=== PATIENT | female | born 1995 | race African-American/Black ===

== ENCOUNTER 2021-10-25 11:49 | Day surgery (SDC) | payer BC ==
[2021-10-25 12:25] VITALS: BMI 26.2
[2021-10-25 13:39] LABS: Bilirubin Neg (Negative); Blood, Urine 25 (Negative); Clarity Slightly Cloudy (Clear); Glucose, Urine (Dipstick) Normal (Negative); Ketone, Urine 5 mg/dL (Negative); Leukocyte 500 (Negative); Nitrite Negative (Negative); Protein, Urine (Dipstick) 15 mg/dl (Neg-Trace)
[2021-10-25] MEDS ORDERED: hydrALAZINE 20 MG/ML VIAL SLOW IVP PRN (13:48)
[2021-10-25 14:05] LABS: Bacteria/HPF 2+ HPF (None Seen)
== END 2021-10-25 14:28 | disposition home or self-care (01) ==
LOC: CSHLD/OP 11:49
PROVIDERS: ATTEND Obstetrics & Gynecology
DX: O99.891 Other specified diseases and conditions complicating pregnancy (principal); R10.9 Unspecified abdominal pain; Z3A.28 28 weeks gestation of pregnancy
CPT/HCPCS: 81003; 81015

== ENCOUNTER 2022-01-06 10:41 | Outpatient (CLI) | payer BC ==
[2022-01-07 00:05] LABS: SARS-CoV-2 PCR by NAA Not Detected (NotDetected)
== END 2022-01-06 10:42 | disposition home or self-care (01) ==
LOC: CSHLAB 10:41
PROVIDERS: ATTEND Advanced Practice Midwife
DX: Z20.822 Contact with and (suspected) exposure to COVID-19 (principal)
CPT/HCPCS: U0003; U0005

== ENCOUNTER 2024-11-10 13:41 | Emergency (ER) | payer SELFPAY ==
[2024-11-10 14:42] LABS: Hematocrit 33.8 % (34.9-44.5); Hemoglobin 10.3 g/dL (12.0-15.5); Mean Corpuscular HGB CONC 30.5 g/dL (32.0-36.0); Mean Corpuscular Volume 88.7 fL (81.6-98.3); Mean Platelet Volume 11.5 fL (7.4-10.4); Platelet Count 284 10x3/uL (150-450); RBC Distribution Width 14.2 % (11.5-14.5); Red Blood Cell (RBC) Count 3.81 10x6/uL (3.90-5.03)
[2024-11-10 14:45] LABS: BHCG - Serum Negative (NEGATIVE); Pregs Control Background? CLEAR/WHITE (CLR/WHITE); Pregs Control Bar Appear? YES (CONTROL BAR)
[2024-11-10 14:52] LABS: ALT (SGPT) 12 U/L (8-55); AST (SGOT) 13 U/L (5-34); Albumin 4.1 g/dL (3.5-5.0); Alkaline Phosphatase 62 U/L (40-110); Anion Gap 12 mmol/L (10-20); BUN (Urea Nitrogen) 9 mg/dL (7.0-18.7); Bilirubin, Total 0.7 mg/dL (0.2-1.2); Calc. Creatinine Clearance 0 mL/min (70-130); Calcium 9.7 mg/dL (7.8-10.44); Carbon Dioxide 23 mmol/L (22-29); Chloride 108 mmol/L (98-107); Estimated GFR 113; Globulin 3.2 g/dL (2.4-3.5); Glucose 85 mg/dL (70-105); Protein, Total 7.3 g/dL (6.0-8.3); Sodium 139 mmol/L (136-145)
[2024-11-10 15:16] LABS: Bilirubin Neg (Negative); Blood, Urine 150 (Negative); Clarity Clear (Clear); Glucose, Urine (Dipstick) Normal (Negative); Ketone, Urine Negative (Negative); Leukocyte Negative (Negative); Nitrite Negative (Negative); Protein, Urine (Dipstick) Negative (Neg-Trace); Specific Gravity, Urine 1.015 (1.005-1.030); Urobilinogen Normal mg/dL (Less than 2)
[2024-11-10 15:16] LABS: MDiff Complete? YES
[2024-11-10 15:42] LABS: Lymphocytes 41 % (21-51); Monocytes 9 % (0-10); Neutrophil 49 % (42-75); Reactive Lymphocytes 1 % (0-10)
[2024-11-10 15:43] LABS: Elliptocytes SLIGHT = 2-5 cells (100X) (0-1/hpf); Hypochromia SLIGHT = 6-15 cells (100X) (0-5/hpf); Platelet Adequacy Comment Appears Adequate
[2024-11-10 15:50] LABS: Bacteria/HPF Rare-Few HPF (None Seen); CAUTI Indications for Culture Pelvic or flank pain; Mucous/LPF Rare LPF (<2+); Squamous Epithelial 0-3 HPF (0-3); WBC/HPF 0-3 HPF (0-3)
[2024-11-10 15:51] LABS: Urine Culture Reflex No No
== END 2024-11-10 16:01 | disposition home or self-care (01) ==
LOC: CSHERS 13:41
DX: N93.9 Abnormal uterine and vaginal bleeding, unspecified (principal)
CPT/HCPCS: 36415; 80053; 81001; 84703; 85025; 99284